=== PATIENT | female | born 1980 | race Caucasian/White ===

== ENCOUNTER 2017-05-22 11:55 | Emergency (ER) | payer OTHER ==
[~2017-05-22] VITALS: Ht 154.9 cm; Wt 84.5 kg
[~2017-05-22 11:55] MED LIST: ALBUTEROL SULF8.5 GM IH; APRISO0.375 GM PO; ASACOL HD800 MG PO; ASACOL400 MG PO; B-100 COMPLEX1 EACH PO; BENTYL10 MG PO; BENTYL20 MG PO; CELEXA20 MG PO; CIPRO250 MG PO; CIPRO500 MG PO; CLONAZEPAM1 MG; CLONAZEPAM1 MG PO; CLONAZEPAM2 MG PO; CLONIDINE HCL0.1 MG PO; COLACE100 MG PO; DAILY VITE1 EAC1 PO; DEPAKOTE500 MG PO; DICYCLOMINE HCL10 MG; DICYCLOMINE HCL20 MG PO; ENSURE LIQUID237 M1 PO; FLAGYL500 MG; FLAGYL500 MG PO; FLORASTOR250 MG PO; GABAPENTIN100 MG PO; GABAPENTIN300 MG PO; GABAPENTIN400 MG PO; GUAIFENESIN WI120 ML PO; HYDROCODON-ACE1 EAC9; IBUPROFEN800 MG PO; INDERAL40 MG PO; KLONOPIN0.5 MG PO; KLONOPIN1 M1 PO; KLONOPIN1 MG PO; LAMOTRIGINE200 MG PO; LOPERAMIDE2 MG PO; METHADONE HCL40 MG PO; METOPROLOL SUCC25 MG PO; MIRALAX255 GM PO; MORPHINE SULFAT30 M1 PO; OXYCODONE HCL10 MG PO; OXYCODONE HCL20 M1; OXYCODONE HCL30 MG PO; OXYCODONE HCL5 MG PO; OXYCODONE10 MG PO; OXYCODONE15 MG PO; OXYCODONE30 MG PO; OXYCONTIN15 MG PO; OXYCONTIN80 MG; PERCOCET 5/31 TABLET PO; PREDNISONE20 MG; PREDNISONE5 M1 PO; PREDNISONE50 MG PO; PROBIOTIC1 EAC2 PO; PROMETHAZINE HC25 M1; PROMETHAZINE HC25 M1 PO; PROMETHAZINE12.5 M1; QUETIAPINE FUM100 MG; ROBITUSSIN AC,T10 ML PO; ROBITUSSIN100 MG/5 M PO; ROXICODONE5 MG PO; SAPHRIS10 MG SL; SAPHRIS5 MG SL; SEROQUEL100 MG PO; THERAGRAN1 TABLET PO; TOPAMAX25 MG PO; TRAMADOL HCL50 MG PO; TRAZODONE HCL100 MG PO; TRAZODONE HCL50 MG PO; ULTRAM50 MG PO; VALIUM10 MG PO; VISTARIL50 MG PO; VOLTAREN50 M1 PO; XANAX1 MG PO; XIFAXAN550 MG PO; ZOFRAN ODT4 MG PO; ZOFRAN4 MG PO
[2017-05-22 12:30] LABS: APPEARANCE CLEAR ((CLEAR)); BILIRUBIN NEGATIVE; BLOOD NEGATIVE; COLOR YELLOW ((YELLOW)); GLUCOSE (STRIP) NEGATIVE; KETONES NEGATIVE; LEUKOCYTES NEGATIVE; NITRITE NEGATIVE; PROTEIN (STRIP) NEGATIVE; UCUL ADDED? NO; UROBILINOGEN 0.2 MG/DL (0.2-1.0)
[2017-05-22 13:24] LABS: HEMATOCRIT 43.2 % (36.0-46.0); HEMOGLOBIN 15.1 G/DL (11.9-15.5); MCH 29.3 PG (29.0-34.0); MCV 83.9 FL (83-99); PLATELET COUNT 314 K/uL (156-360); RBC DIS.WIDTH-CV 13.2 % (11.8-14.6); RED BLOOD COUNT 5.15 M/uL (3.80-5.20); WHITE BLOOD COUNT 9.9 K/uL (4.1-10.2)
[2017-05-22 13:48] LABS: QUANTITATIVE HCG < 4.0 MIU/ML
[2017-05-22 14:09] LABS: ALBUMIN 4.8 G/DL (3.2-4.8); CHLORIDE 110 MEQ/L (99-109); SODIUM 140 MEQ/L (136-147); TOTAL BILIRUBIN 0.3 MG/DL (0.0-1.0)
[2017-05-22 14:14] LABS: ALKALINE PHOSPHATASE 69 IU/L (3-129); ALT (GPT) 20 IU/L (3-49); AST (GOT) 20 IU/L (2-34); CREATININE 0.7 MG/DL (0.6-1.3); GFR ESTIMATE (CALCULATED) > 59 mL/min/; GLUCOSE 95 mg/dL (70-99); TOTAL PROTEIN 7.7 G/DL (6.4-8.3); UREA NITROGEN (BUN) 10 mg/dL (9-23)
[2017-05-22] MEDS ORDERED: KEFLEX500 MG PO (15:24)
[2017-05-22] MEDS ORDERED: ZOFRAN ODT4 MG PO (15:24)
[2017-05-22] MEDS ORDERED: BENTYL10 MG PO (15:24)
[2017-05-22] MEDS ORDERED: BACTROBAN CREAM15 GM TP (15:31)
[2017-05-22 15:48] VITALS: BP 134/97
== END 2017-05-22 15:52 | disposition home or self-care (01) ==
LOC: EME 11:55
DX: K52.9 Noninfective gastroenteritis and colitis, unspecified (principal); L03.90 Cellulitis, unspecified; K50.90 Crohn's disease, unspecified, without complications; Z93.3 Colostomy status; J45.909 Unspecified asthma, uncomplicated; F41.9 Anxiety disorder, unspecified; F32.9 Major depressive disorder, single episode, unspecified; F31.9 Bipolar disorder, unspecified; R56.9 Unspecified convulsions; I25.2 Old myocardial infarction; F17.200 Nicotine dependence, unspecified, uncomplicated; Z87.442 Personal history of urinary calculi; Z86.73 Personal history of transient ischemic attack (TIA), and cerebral infarction without residual deficits; Z86.14 Personal history of Methicillin resistant Staphylococcus aureus infection
CPT/HCPCS: 74177; 80053; 81003; 84702; 85027; 99281; 99284; J1885; J2270; J2405; J7030